=== PATIENT | female | born 1985 | race Caucasian/White ===

== ENCOUNTER → 2018-04-22 | Outpatient (CLI) | payer BC ==
--- NOTE | 2018-04-22 14:16 | USB ---
Reason for exam: clinical finding. History: Took hormonal contraceptives beginning at age 22. Indicated problem(s): pain in the left breast. Physical Findings: Nurse Summary: 0.5cm, 1cm nodule in the left breast at 12 o'clock, 7 o'clock (nurse mp) US Breast LT Technologist: Elisha Copeland, RT (R)(M) Left complete breast ultrasound includes all four quadrants, the retroareolar region and axilla. Finding demonstrates no cystic or solid lesion seen. These results were verbally communicated with the patient and result sheet given to the patient on 04/22/18. ASSESSMENT: Negative, BI-RAD 1 RECOMMENDATION: Clinical management of the left breast. Manage patient on a clinical basis.
== END | disposition home or self-care (01) ==
LOC: RADMAMWWP 12:36
PROVIDERS: ATTEND Family Medicine
DX: N63.23 Unspecified lump in the left breast, lower outer quadrant (principal)

== ENCOUNTER → 2022-04-12 | Outpatient (CLI) | payer BC ==
--- NOTE | 2022-04-14 14:29 | MM ---
Reason for Exam: Screening (asymptomatic). Baseline mammogram. Patient History: Menarche at age 14. First Full-Term at age 27. Hormonal Contraceptives, from age 22 until age 28. Last menstrual period: 03/12/2022 Risk Values: [place] 5 year model risk: 0.3%. NCI Lifetime model risk: 11.3%. Prior Study Comparison: Patient's first Mammogram. Tissue Density: The breast tissue is heterogeneously dense. This may lower the sensitivity of mammography. Findings: Analyzed By CAD. There is circumscribed to mostly circumscribed nodularity in both breasts, left greater then right. This is an overall benign pattern. As no priors are available for comparison, short interval follow-up recommended to reassess this nodularity. No suspicious microcalcifications or other discrete abnormality is seen. Overall Assessment: Probably benign, BI-RAD 3 Management: Diagnostic Mammogram of both breasts in 6 months. 1. Six-month follow-up bilateral diagnostic mammograms to reassess the bilateral nodularity. This is an overall benign pattern by no priors are available to assess stability. 2. Patient should continue monthly self breast exams. 3. This exam should not preclude additional follow-up of suspicious palpable abnormalities. Electronically signed and approved by: Warren Melara M.D. Radiologist
== END | disposition home or self-care (01) ==
LOC: RADMAMWWP 07:27
PROVIDERS: ATTEND Obstetrics & Gynecology
DX: Z12.31 Encounter for screening mammogram for malignant neoplasm of breast (principal)
CPT/HCPCS: 77067

== ENCOUNTER → 2022-10-15 | Outpatient (CLI) | payer BC ==
--- NOTE | 2022-10-15 13:50 | MM ---
Reason for Exam: Follow-up at short interval from prior study. Last screening mammogram was performed 6 month(s) ago. Patient History: Menarche at age 14. First Full-Term at age 27. Hormonal Contraceptives, from age 22 until age 28. Last menstrual period: 10/13/2022 Risk Values: [place] 5 year model risk: 0.4%. NCI Lifetime model risk: 11.3%. Tissue Density: The breast tissue is heterogeneously dense. This may lower the sensitivity of mammography. Findings: Analyzed By CAD. Left breast, 3-D imaging of the breast demonstrated no suspicious masses, calcifications or distortions. Area of concern is felt to represent fibroglandular tissue overlapping on itself. Right breast, no suspicious masses distortions or calcifications. Overall Assessment: Benign, BI-RAD 2 Management: Screening Mammogram of both breasts at age 41. A clinical breast exam by your physician is recommended on an annual basis and results should be correlated with mammographic findings. This exam should not preclude additional follow-up of suspicious palpable abnormalities. Results were given to the patient verbally at the time of exam. Electronically signed and approved by: Dionte Calvillo DO
== END | disposition home or self-care (01) ==
LOC: RADMAMWWP 12:58
PROVIDERS: ATTEND Obstetrics & Gynecology
DX: R92.8 Other abnormal and inconclusive findings on diagnostic imaging of breast (principal)
CPT/HCPCS: 77062; 77066